=== PATIENT | female | born 1950 | race African-American/Black ===

== ENCOUNTER 2017-08-22 17:05 | Inpatient (IN) ==
[2017-08-22] MEDS ORDERED: ACETAMINOPHEN 325 MG TABLET PO PRN (18:58)
[2017-08-22] MEDS ORDERED: ONDANSETRON 4 MG/2 ML VIAL IV PRN (18:58)
[2017-08-22] MEDS ORDERED: GLUCAGON 1 MG VIAL IM PRN (18:58)
[2017-08-22] MEDS ORDERED: DEXTROSE 50% 25 GM/50 ML SYRINGE IV PRN (18:58)
[2017-08-22] MEDS ORDERED: NYSTATIN POWDER 15 GM BOTTLE TOP PRN (19:00)
[2017-08-22] MEDS ORDERED: BISACODYL 5 MG TABLET PO PRN (19:01)
[2017-08-22] MEDS ORDERED: dimenhyDRINATE 50 MG TABLET PO PRN (19:01)
[2017-08-22] MEDS ORDERED: oxyCODONE/ACETAMINOPHEN 5-325 MG TABLET PO PRN (19:01)
--- NOTE | 2017-08-22 19:05 | XRay Report ---
Exam: XR chest 1V portable Date: 08/22/2017 5:56 PM Indication: Elevated white blood cell count Comparison: None Technical: AP Findings: The heart is normal in size. Mild prominence the pulmonary arteries are present. ASVD is present. No obvious consolidating infiltrate or effusion. Bony structures are intact without acute findings. Impression: 1. No acute cardiopulmonary pathology demonstrated. PROCEDURE INTERPRETED AT [facility] DEPARTMENT OF RADIOLOGY Final Report Signed by: Dr. Kamar Hinton
--- NOTE | 2017-08-22 19:14 | Hospitalist History & Physical ---
Assessment and Plan - Time spent with patient Time spent with patient: Greater than 30 minutes (1) Dehydration Status: Acute Assessment and plan: Once IV access is gained, initiate IV fluids for rehydration. Current Visit: Yes (2) Acute kidney injury Status: Acute Assessment and plan: External facility records indicate acute kidney injury with creatinine approximately 3.1 and BUN greater than 80. Avoid nephrotoxic agents. Gentle IV fluid repletion. Consult nephrology for assistance. Current Visit: Yes (3) Hypokalemia Status: Acute Assessment and plan: External facility records indicate a potassium level of approximately 2.8. Potassium replacement per protocol. Current Visit: Yes (4) Depression Status: Acute Assessment and plan: Continue home medications Current Visit: Yes (5) History of cervical cancer Status: Acute Assessment and plan: Patient recently diagnosed with cervical cancer in May 2017. She is followed by physicians at [facility]. Status post hysterectomy. Current Visit: Yes (6) Status post complete hysterectomy Status: Acute Assessment and plan: Patient received a complete hysterectomy May 2017 secondary to cervical cancer. Current Visit: Yes (7) Status post nephrectomy Status: Acute Assessment and plan: Patient still has a left nephrostomy tube in place. She is followed by urology in [place]. Current Visit: Yes (8) Candidiasis of mouth Status: Acute Assessment and plan: Oral nystatin Current Visit: Yes (9) Yeast infection involving the vagina and surrounding area Status: Acute Assessment and plan: Nystatin powder topical twice daily and as needed. Current Visit: Yes History of Present Illness Chief complaint: dehydration, NIKKI, hypokalemia History of present illness: Ms. Colunga is a 67 year old female with past medical history significant for hypertension, congestive heart failure, cervical cancer with recent hysterectomy, and hyperlipidemia who presents as a transfer from [facility] for further evaluation of dehydration, acute renal failure and hypokalemia. On exam, the patient has a flat affect and appears to be depressed. Much of her history was given from her daughters who are at bedside. Apparently the patient was recently diagnosed with cervical cancer with subsequent hysterectomy in May 2017. Daughter states that the patient seems to have "clocked out" since receiving the diagnosis of cancer. She is not yet started chemotherapy. Patient is primarily cared for by her sister during the week and daughters on the weekend. Patient has obvious poor hygiene and his she does have evidence of oral thrush, severe yeast infections in her abdominal and vaginal folds. On exam, the patient does not voice any complaints outside of exquisite tenderness to the pubic and groin regions. She denies headache, chest pain, shortness of breath, abdominal pain, numbness or tingling. Daughter states that she has lost a significant amount of weight in the recent past. She is followed by physicians at [facility] in [place] including a urologist. Labs are currently pending. However, external facility records indicate that the patient has acute kidney injury with a creatinine greater than 3 and BUN greater than 80. Records also indicate that the patient is hypokalemic with a potassium level less than 3. Stat labs have been ordered. Her nurses are having difficulty accessing an IV. Therefore we have consulted Dr. Camp to insert a central line. This case has been discussed with Dr. Bhandari, admitting physician, and the patient will be admitted to the hospital medicine service for further evaluation and treatment. She is a full code. Home medications have been reviewed and reconciled. Home Medications Medication Instructions Recorded Confirmed Type Atorvastatin [Lipitor] 20 mg PO BEDTIME 08/22/17 08/22/17 History Bisacodyl Tab [Dulcolax Tab] 5 mg PO DAILY PRN 08/22/17 08/22/17 History Carvedilol [Coreg] 3.125 mg PO BID 08/22/17 08/22/17 History Ciprofloxacin Tab [Cipro Tab] 500 mg PO BID 08/22/17 08/22/17 History Escitalopram [Lexapro] 20 mg PO BEDTIME 08/22/17 08/22/17 History Ferrous Sulfate 325 mg PO TID 08/22/17 08/22/17 History Furosemide 40 mg PO DAILY 08/22/17 08/22/17 History Mirtazapine 7.5 mg PO BEDTIME 08/22/17 08/22/17 History Nitrofurantoin Monohyd/M-Cryst 100 mg PO BID 08/22/17 08/22/17 History [Nitrofurantoin [place]-Mcr 100 mg] Oxycodone HCl/Acetaminophen 1 - 2 tablet PO Q6H PRN 08/22/17 08/22/17 History [Oxycodone-Acetaminophen 10-325] Pantoprazole Tab [Protonix Tab] 40 mg PO DAILY 08/22/17 08/22/17 History Polyethylene Glycol Powder 17 gm PO DAILY 08/22/17 08/22/17 History [Miralax] amLODIPine [Norvasc] 2.5 mg PO DAILY 08/22/17 08/22/17 History dimenhyDRINATE TAB [Dramamine] 1 tablet PO Q4HR PRN 08/22/17 08/22/17 History Allergies Allergy/AdvReac Type Severity Reaction Status Date / Time No Known Allergies Allergy Verified 08/22/17 17:55 Medical,Surgical,& Family Hx - Medical History Cardio: History of: Hypertension Psychological: History of: Depression Endocrine: History of: Dyslipidemia Gastrointestinal: History of: GERD Hematology: History of: Anemia Other: No history of: Anesthesia Reactions, Anaphylaxis - Surgical History Thoracic Surgeries: Surgical HX of;: Nephrectomy Reproductive Surgeries: Surgical HX of;: Gynecologic Surgery, Hysterectomy - Family History Family History: Reports;: Family Cancer, Family Diabetes, Family Hypertension - Social History Smoking Status: Never smoker Frequency of Alcohol Use: None Type of Drug Use: None Marital Status: Single Lives With:: Children Functional capacity: uses cane/walker 12 point system: reviewed and no additional remarkable complaints except as stated Exam - Constitutional Vitals: Period Temp Pulse Resp BP Sys/Matthews Pulse Ox Last 24 Hr 97.2 F 116 18 106/59 93 General appearance: over weight - Head Head exam: Present: normal inspection, normocephalic, atraumatic - Eye Eye exam: Present: EOMI Pupils: Present: CHEYANNE - ENT ENT exam: Present: normal exam, normal external ear exam - Neck Neck exam: Present: normal inspection. Absent: lymphadenopathy, tenderness, thyromegaly - Respiratory Respiratory exam: Present: clear to auscultation bilaterally. Absent: rales, rhonchi, wheezes - Cardiovascular Cardiovascular exam: Present: regular rate and rhythm - GI/Abdominal GI/Abdominal exam: Present: normal bowel sounds, tenderness, soft, other ( Significant decrease in abdominal folds). Absent: distended, firm - Extremities Exam Extremities exam: Present: normal capillary refill, full ROM, edema - Neurological Exam Neurological exam: Present: alert, oriented X3, CN II-XII intact, reflexes normal - Psychiatric Psychiatric exam: Present: depressed, flat affect - Skin Skin exam: Present: abrasion, erythema, rash Results - Labs Labs: Labs are pending IV access or central line placement. - Diagnostic Findings Procedure: Chest x-ray: image reviewed by me, report reviewed by me (No acute cardiopulmonary pathology demonstrated.)
[2017-08-22 19:21] LABS: Basophils % 0.4 % (0.0-0.8); Eosinophils % 0.1 % (0.00-10.9); Hematocrit 31.8 VOL% (35.7-47.0); Hemoglobin 10.2 GM/DL (12.0-16.0); Immature Granulocytes % 1.1 %; Immature Granulocytes Absolute 0.08 #; Lymphocytes # 0.4 10*3/uL (1.4-4.0); Lymphocytes % 5.2 % (21.3-54.2); Mean Corpuscular HGB Conc 32.1 GM/DL (32-36); Mean Corpuscular Hemoglobin 27 PG (27-34); Mean Corpuscular Volume 83.9 FL (87-102); Monocytes # 0.3 10*3/uL (0.11-0.8); Monocytes % 3.4 % (1.7-12.7); NRBC # 0.08 10*3/uL; Neutrophils # 6.6 10*3/uL (1.4-7.4); Neutrophils % 89.8 % (38.7-73.9); Red Blood Count 3.79 MC/CUMM (3.8-5.5); Red Cell Distribution Width 26.1 % (9.3-17.3); White Blood Count 7.4 T/CUMM (4-12)
[2017-08-22 19:25] LABS: Platelet Count 51 T/CUMM (130-400)
--- NOTE | 2017-08-22 19:28 | Operative Note ---
Date of procedure: 08/22/17 Pre-op diagnosis: Dehydration, cervical cancer, unable to obtain IV access Post-op diagnosis: same Procedure: Indication for procedure. Patient was transferred from [facility] emergency room with diagnosis of dehydration and renal insufficiency and cervical cancer. By report 8 attempts were made at obtaining a peripheral IV at the outside emergency room and TWO attempted here upon direct admission. None were successful. Discussed central line placement with the patient's family. The risks of the procedure including bleeding, infection, damage to surrounding structures, need for further surgery were all discussed in detail and they all agree to proceed. Procedure performed. Placement of right internal jugular central venous catheter Procedure in detail: After informed consent was obtained patient was laid supine in her hospital bed in the right neck and chest were prepped and draped in usual sterile fashion. After procedural pause ultrasound was brought over through a sterile sleeve covering ultrasound the right neck revealed a patent and compressible right internal jugular vein. Local anesthetic infiltrated in skin and subcutaneous tissue. The right internal jugular vein was then accessed using an 18-gauge Seldinger needle under ultrasound guidance on the first attempt. There was return of nonpulsatile dark red blood. Guidewire inserted and advanced without resistance. Ultrasound confirmed the guidewire to be coursing through the visualized portion of the right internal jugular vein. Next a small incision was made around the guidewire. The tract was dilated using Seldinger technique. Next a quadruple lumen central venous catheter was advanced over the guidewire using Seldinger technique. The guidewire was removed. All ports withdrew and flushed easily. The catheter was secured with 2-0 silk suture. Sterile dressings applied and the patient tolerated the procedure well. Anesthesia: local Surgeon / Physician: Girma Camp Estimated blood loss: other (Less than 5 cc) Specimens: none sent Condition: stable Disposition: no change Discharge Plan - Discharge Medications No Action Pantoprazole Tab [Protonix Tab] 40 mg PO DAILY Atorvastatin [Lipitor] 20 mg PO BEDTIME Escitalopram [Lexapro] 20 mg PO BEDTIME amLODIPine [Norvasc] 2.5 mg PO DAILY Ferrous Sulfate 325 mg PO TID dimenhyDRINATE TAB [Dramamine] 1 tablet PO Q4HR PRN PRN Reason: Itching Oxycodone HCl/Acetaminophen [Oxycodone-Acetaminophen 10-325] 1 - 2 tablet PO Q6H PRN PRN Reason: Pain Nitrofurantoin Monohyd/M-Cryst [Nitrofurantoin [place]-Mcr 100 mg] 100 mg PO BID Carvedilol [Coreg] 3.125 mg PO BID Furosemide 40 mg PO DAILY Ciprofloxacin Tab [Cipro Tab] 500 mg PO BID Mirtazapine 7.5 mg PO BEDTIME Bisacodyl Tab [Dulcolax Tab] 5 mg PO DAILY PRN PRN Reason: Constipation Polyethylene Glycol Powder [Miralax] 17 gm PO DAILY - Follow Up or Referral - Forms/Instructions
--- NOTE | 2017-08-22 19:31 | XRay Report ---
Exam: XR chest 1V portable Date: 08/22/2017 7:05 PM Indication: Central line placement Comparison: 08/22/2017 6:21 PM Technical: AP Findings: A right IJ catheter has been placed this tip is in the right atrium. No pneumothorax. ASVD is present. No obvious consolidating infiltrate or effusion present. The heart is normal in size. Impression: 1. Interval placement right IJ catheter without pneumothorax. PROCEDURE INTERPRETED AT [facility] DEPARTMENT OF RADIOLOGY Final Report Signed by: Dr. Kamar Hinton
[2017-08-22 19:48] LABS: Albumin 2.4 G/DL (3.4-5.0); Bilirubin,Total 1.4 MG/DL (0.2-1.0); Calcium 9.7 MG/DL (8.5-10.1); Osmolality,Calculated 305.8 MOS/KG (273-304); Potassium 3.3 MMOL/L (3.5-5.1); Total Protein 6.9 G/DL (6.4-8.3)
[2017-08-22] MEDS: SODIUM CHLORIDE 0.9% 1,000 ML IV SCH (19:52)
[2017-08-22 19:55] LABS: Risk Ratio 12.26; Thyroid Stimulating Hormone 4.28 uIU/ml (0.358-3.74)
[2017-08-22] MEDS: FERROUS SULFATE 325 MG TABLET PO SCH (20:55)
[2017-08-22] MEDS: CIPROFLOXACIN 500 MG TABLET PO SCH (20:55)
[2017-08-22] MEDS: ESCITALOPRAM 10 MG TABLET PO SCH (20:55)
[2017-08-22] MEDS: ATORVASTATIN 20 MG TABLET PO SCH (20:55)
[2017-08-22] MEDS: CARVEDILOL 3.125 MG TABLET PO SCH (20:55)
[2017-08-22] MEDS: MIRTAZAPINE 15 MG TABLET PO SCH (20:56)
[2017-08-22] MEDS: NYSTATIN POWDER 15 GM BOTTLE TOP SCH (20:57)
[2017-08-22] MEDS ORDERED: NITROFURANTOIN MACRO/MONO 100 MG CAPSULE PO SCH (21:00)
[2017-08-22 21:07] LABS: Apearance,Urine CLOUDY (Clear); Bacteria,Urine Many /HPF (Few); Blood, Urine Moderate mg/dL (Negative); Glucose,Urine (UA) Negative (Negative); Ketones,Urine 5 mg/dL (Negative); Mucus,Urine Many /LPF (Occasional); Nitrite,Urine Negative (Negative); Protein,Urine >=500 MG/DL; RBC,Urine 302 /HPF (0-4); Urine Color Yellow (Yellow); Urine Specific Gravity 1.011 (1.001-1.035); Urine Urobilinogen < 2.0 EU/DL (0.2-1.0); WBC,Urine 264 /HPF (0-6)
[2017-08-22 21:08] LABS: Bilirubin,Urine Small mg/dL (Negative)
[2017-08-22] MEDS: INSULIN LISPRO 100 UNIT/ML SUBCUT SCH (22:17)
[2017-08-22] MEDS: POTASSIUM CHLORIDE RIDER 20 MEQ in PREMIX 1 EACH IV PRN (22:17)
[2017-08-23] MEDS: POTASSIUM CHLORIDE RIDER 20 MEQ in PREMIX 1 EACH IV PRN (00:25)
[2017-08-23] MEDS: SODIUM CHLORIDE 0.9% 1,000 ML IV SCH ×3 (02:55→20:46)
[2017-08-23 07:30] LABS: Basophils % 0.3 % (0.0-0.8); Eosinophils # 0.1 10*3/uL (0.0-0.87); Eosinophils % 0.9 % (0.00-10.9); Hematocrit 28.4 VOL% (35.7-47.0); Hemoglobin 9.4 GM/DL (12.0-16.0); Immature Granulocytes % 0.7 %; Immature Granulocytes Absolute 0.05 #; Lymphocytes # 0.5 10*3/uL (1.4-4.0); Lymphocytes % 7.3 % (21.3-54.2); Mean Corpuscular HGB Conc 33.1 GM/DL (32-36); Mean Corpuscular Hemoglobin 28 PG (27-34); Monocytes # 0.3 10*3/uL (0.11-0.8); Monocytes % 3.7 % (1.7-12.7); NRBC # 0.09 10*3/uL; Neutrophils # 5.8 10*3/uL (1.4-7.4); Neutrophils % 87.1 % (38.7-73.9); Red Blood Count 3.42 MC/CUMM (3.8-5.5); Red Cell Distribution Width 26.5 % (9.3-17.3); White Blood Count 6.7 T/CUMM (4-12)
[2017-08-23 07:31] LABS: Platelet Count 45 T/CUMM (130-400)
[2017-08-23 07:54] LABS: Calcium 9.4 MG/DL (8.5-10.1); Osmolality,Calculated 309.3 MOS/KG (273-304); Potassium 3.2 MMOL/L (3.5-5.1)
[2017-08-23 08:05] LABS: Band Neutrophils 9 % (0-10); Hypochromasia 1+; Lymphocytes 2 % (20-55); Metamyelocytes 1 %; Segmented Neutrophils 87 % (50-85); Total Cells Counted 100
[2017-08-23 08:06] LABS: Anisocytosis 1+; Microcytosis 1+; Ovalocytes Slight
[2017-08-23 08:07] LABS: Platelet Estimate Decreased
[2017-08-23] MEDS ORDERED: FUROSEMIDE 40 MG TABLET PO SCH (09:00)
--- NOTE | 2017-08-23 09:01 | Hospitalist Progress Note ---
Assessment and Plan (1) Acute kidney injury Status: Acute Assessment and plan: Noted improvement in renal function. BUN and creatinine noted at 88/2.70 down from 90/3.30. We will continue gentle hydration and avoid all nephrotoxic agents. We will monitor intake and output closely. Current Visit: Yes (2) Dehydration Status: Acute Assessment and plan: We will continue hydration as previously ordered. Monitor intake and output closely. Continue supportive measures. Current Visit: Yes Hospitalist: Subjective Interval history: Patient seen and examined; chart reviewed. No significant overnight events reported. Noted improvement in renal status; BUN/Creatinine noted at 88/2.70 from 90/3.30 on yesterday. Exam - Constitutional Vitals: Period Temp Pulse Resp BP Sys/Matthews Pulse Ox Last 24 Hr 97.2 F-97.9 F 72-116 16-18 106-154/47-76 93-99 General appearance: no acute distress, under weight - Head Head exam: Present: normal inspection, normocephalic, atraumatic - Eye Eye exam: Present: EOMI Pupils: Present: CHEYANNE, normal accommodation - ENT ENT exam: Present: normal exam, normal external ear exam, normal oropharynx - Neck Neck exam: Present: normal inspection. Absent: lymphadenopathy, meningismus, tenderness, thyromegaly - Respiratory Respiratory exam: Present: clear to auscultation bilaterally. Absent: rales, rhonchi, stridor, wheezes - Cardiovascular Cardiovascular exam: Present: regular rate and rhythm. Absent: carotid bruit, diastolic murmur, gallop, JVD, rubs, systolic murmur - GI/Abdominal GI/Abdominal exam: Present: normal bowel sounds, soft - Extremities Exam Extremities exam: Present: normal inspection, normal capillary refill, full ROM. Absent: edema - Back Exam Back exam: Present: normal inspection - Neurological Exam Neurological exam: Present: alert, oriented X3 - Psychiatric Psychiatric exam: Present: flat affect - Skin Skin exam: Present: normal color, warm, dry Results - Labs CBC & BMP: 08/23/17 05:20 08/23/17 05:20 Lab Results: I have reviewed the past 24 hour labs
[2017-08-23] MEDS: PANTOPRAZOLE 40 MG TABLET PO SCH (09:21)
[2017-08-23] MEDS: CIPROFLOXACIN 500 MG TABLET PO SCH (09:21)
[2017-08-23] MEDS: POLYETHYLENE GLYCOL POWDER 17 GM PACK PO SCH (09:22)
[2017-08-23] MEDS: amLODIPine 2.5 MG TABLET PO SCH (09:22)
[2017-08-23] MEDS: CARVEDILOL 3.125 MG TABLET PO SCH ×2 (09:22→20:46)
[2017-08-23] MEDS: FERROUS SULFATE 325 MG TABLET PO SCH ×3 (09:22→20:46)
[2017-08-23] MEDS: INSULIN LISPRO 100 UNIT/ML SUBCUT SCH ×4 (09:23→20:47)
[2017-08-23] MEDS: NYSTATIN POWDER 15 GM BOTTLE TOP SCH (09:23)
[2017-08-23] MEDS: NYSTATIN 500,000 UNIT/5 ML UDCUP SWISH/SWAL SCH ×3 (12:52→20:47)
[2017-08-23] MEDS: CLOTRIMAZOLE/BETAMETHASONE CREAM 15 GM TUBE TOP SCH ×2 (12:52→20:55)
--- NOTE | 2017-08-23 13:10 | Ultrasound Report ---
Renal ultrasound Indication: Elevated creatinine Comparison: None available Findings: Kidneys are normal in size and echogenicity except for a simple appearing cyst on the left kidney that measures 7 mm in size. Bilateral internal ureteral stents are present. There is suggestion of mild left hydronephrosis. The right renal length is 8.3 cm. The left renal length is 10.4 cm. No free fluid or other abnormality is seen. Impression: Simple appearing left renal cyst. Bilateral internal ureteral stents. Possible mild left hydronephrosis. No other abnormality seen. Ultrasound images stored and captured. PROCEDURE INTERPRETED AT [facility] DEPARTMENT OF RADIOLOGY Final Report Signed by: Dr. Dom Evans
[2017-08-23] MEDS ORDERED: LEVOFLOXACIN INJ 500 MG in PREMIX 1 EACH IV SCH (16:00)
[2017-08-23] MEDS ORDERED: VANCOMYCIN INJ 1,250 MG in SODIUM CHLORIDE 0.9% 250 ML IV SCH (17:00)
[2017-08-23] MEDS: MIRTAZAPINE 15 MG TABLET PO SCH (20:45)
[2017-08-23] MEDS: ESCITALOPRAM 10 MG TABLET PO SCH (20:46)
[2017-08-23] MEDS: ATORVASTATIN 20 MG TABLET PO SCH (20:46)
[2017-08-23] MEDS: POTASSIUM CHLORIDE RIDER 10 MEQ in PREMIX 1 EACH IV PRN (23:10)
[2017-08-24] MEDS: POTASSIUM CHLORIDE RIDER 10 MEQ in PREMIX 1 EACH IV PRN ×3 (00:21→03:29)
[2017-08-24 07:43] LABS: Basophils % 0.2 % (0.0-0.8); Eosinophils # 0.1 10*3/uL (0.0-0.87); Hemoglobin 8.7 GM/DL (12.0-16.0); Immature Granulocytes Absolute 0.05 #; Lymphocytes # 0.2 10*3/uL (1.4-4.0); Lymphocytes % 4.8 % (21.3-54.2); Mean Corpuscular HGB Conc 31.1 GM/DL (32-36); Mean Corpuscular Hemoglobin 27 PG (27-34); Mean Corpuscular Volume 85.9 FL (87-102); Monocytes # 0.2 10*3/uL (0.11-0.8); NRBC # 0.04 10*3/uL; Neutrophils # 4.5 10*3/uL (1.4-7.4); Red Blood Count 3.26 MC/CUMM (3.8-5.5)
[2017-08-24 07:57] LABS: Platelet Count 26 T/CUMM (130-400)
[2017-08-24 08:09] LABS: Calcium 8.8 MG/DL (8.5-10.1); Potassium 3.3 MMOL/L (3.5-5.1)
[2017-08-24 08:15] LABS: Albumin 1.9 G/DL (3.4-5.0); Calcium 8.9 MG/DL (8.5-10.1); Magnesium 2.2 MG/DL (1.8-2.4); Phosphorous 1.2 MG/DL (2.5-4.9); Potassium 3.3 MMOL/L (3.5-5.1); Total Protein 5.4 G/DL (6.4-8.3)
[2017-08-24 08:17] LABS: Band Neutrophils 4 % (0-10); Eosinophils 2 % (0-10); Hypochromasia 1+; Lymphocytes 1 % (20-55); Microcytosis 1+; Platelet Estimate Decreased; Segmented Neutrophils 91 % (50-85); Total Cells Counted 100
[2017-08-24] MEDS: INSULIN LISPRO 100 UNIT/ML SUBCUT SCH ×4 (08:50→20:12)
--- NOTE | 2017-08-24 08:51 | Physician Query Form ---
CLICK EDIT DOCUMENT TO SELECT QUERY ANSWER --> OK --> SIGN Xenia Shields RN Clinical Bed Operator W) [phone] (f) [phone] [email or web address] PROVIDERS: Make your selection(s) from the choices in EACH section by typing an "x" and enter comments in the comment section. Please use your independent medical judgment in providing your response. This request does not imply that any particular answer is desired or expected. CLINICAL INDICATORS: (Providers should not edit this section) Based on lab results of urinalysis showed large amount of leukocytes. Pt. treated with IV Levaquin and Vancomycin. Based on the above, could you clarify the appropriate diagnosis, if significant , that supports the above abnormalities and additional evaluation, monitoring, and/or treatment rendered: (X ) Pt. treated for UTI ( ) Pt. not treated for UTI ( ) Other, please specify: ( ) Clinically unable to determine COMMENTS: PLEASE ALSO DOCUMENT RESPONSE IN PROGRESS NOTES AND/OR DISCHARGE SUMMARY Use of terms such as suspected, likely, or probable (associated with a specific diagnosis that is being evaluated, monitored, or treated as if it exists) are acceptable and can be restated in the discharge summary if not ruled out. [facility]
[2017-08-24] MEDS ORDERED: SODIUM CHLORIDE 0.9% 250 ML IV PRN (09:05)
--- NOTE | 2017-08-24 09:05 | Hospitalist Progress Note ---
<Marcy Clarke - Last Filed: 08/24/17 09:03> Assessment and Plan (1) Acute kidney injury Status: Acute Assessment and plan: Noted improvement in renal function. BUN and creatinine noted at 88/2.70 down from 90/3.30. We will continue gentle hydration and avoid all nephrotoxic agents. We will monitor intake and output closely. 10-BUN and creatinine noted at 75/2.00 down from 88/2.70 yesterday. We will continue gentle hydration and avoid all nephrotoxic agents. We will recheck labs in a.m. Current Visit: Yes (2) Dehydration Status: Acute Assessment and plan: We will continue hydration as previously ordered. Monitor intake and output closely. Continue supportive measures. Current Visit: Yes (3) Thrombocytopenia, primary Status: Acute Assessment and plan: Noted decrease in platelet count; platelet count noted at 25 today down from 45 on yesterday. Upon examination, the patient was noted to be experiencing mild hematuria. We will transfuse 1 pack of platelets today and recheck platelet count in a.m. No additional overt signs of bleeding noted. Current Visit: Yes (4) Hypokalemia Status: Acute Assessment and plan: Potassium noted at 3.3 today. Electrolyte replacement has been ordered. We will correct the deficit and recheck in a.m. Current Visit: Yes Hospitalist: Subjective Interval history: Patient seen and examined; chart reviewed. No significant overnight events reported per staff. Hematuria noted in Tang catheter. Exam - Constitutional Vitals: Period Temp Pulse Resp BP Sys/Matthews Pulse Ox Last 24 Hr 96.7 F-97.6 F 62-70 18-18 100-112/48-68 86-100 General appearance: normal weight, no acute distress - Head Head exam: Present: normal inspection, normocephalic, atraumatic - Eye Eye exam: Present: EOMI Pupils: Present: CHEYANNE, normal accommodation - ENT ENT exam: Present: normal exam, normal external ear exam, normal oropharynx - Neck Neck exam: Present: normal inspection. Absent: lymphadenopathy, meningismus, tenderness, thyromegaly - Respiratory Respiratory exam: Present: clear to auscultation bilaterally. Absent: rales, rhonchi, stridor, wheezes - Cardiovascular Cardiovascular exam: Present: bradycardia, regular rate and rhythm. Absent: carotid bruit, diastolic murmur, gallop, JVD, rubs, systolic murmur - GI/Abdominal GI/Abdominal exam: Present: normal bowel sounds, soft - Extremities Exam Extremities exam: Present: edema (+3 pitting edema noted to bilateral lower extremities) - Back Exam Back exam: Present: normal inspection - Neurological Exam Neurological exam: Present: alert, oriented X3, CN II-XII intact - Psychiatric Psychiatric exam: Present: flat affect - Skin Skin exam: Present: normal color, warm, dry Results - Labs CBC & BMP: 08/24/17 05:46 08/24/17 05:46 Lab Results: I have reviewed the past 24 hour labs <Neeraj Hutton - Last Filed: 08/26/17 07:35> Hospitalist: Subjective Interval history: I have seen and examined the patient. Agree with assessment and plans as outlined above by nurse practitioner Marcy Clarke. Exam - Constitutional Vitals: Period Temp Pulse Resp BP Sys/Matthews Pulse Ox Last 24 Hr 96.3 F-98.1 F 61-73 16-20 100-140/46-75 97-100 Results - Labs CBC & BMP: 08/26/17 05:51 08/26/17 05:51
[2017-08-24] MEDS: SODIUM CHLORIDE 0.9% 1,000 ML IV SCH ×4 (09:22→18:08)
[2017-08-24] MEDS: CARVEDILOL 3.125 MG TABLET PO SCH ×2 (09:42→21:06)
[2017-08-24] MEDS: FERROUS SULFATE 325 MG TABLET PO SCH ×3 (09:43→21:06)
[2017-08-24] MEDS: POLYETHYLENE GLYCOL POWDER 17 GM PACK PO SCH (09:44)
[2017-08-24] MEDS: NYSTATIN 500,000 UNIT/5 ML UDCUP SWISH/SWAL SCH ×4 (09:44→21:07)
[2017-08-24] MEDS: PANTOPRAZOLE 40 MG TABLET PO SCH ×2 (09:45→10:03)
[2017-08-24] MEDS: amLODIPine 2.5 MG TABLET PO SCH (09:45)
[2017-08-24] MEDS: POTASSIUM CHLORIDE RIDER 20 MEQ in PREMIX 1 EACH IV PRN ×2 (09:55→11:45)
[2017-08-24] MEDS: CLOTRIMAZOLE/BETAMETHASONE CREAM 15 GM TUBE TOP SCH ×2 (10:01→21:07)
[2017-08-24] MEDS ORDERED: POTASSIUM PHOSPHATE 15 MMOL in SODIUM CHLORIDE 0.9% 100 ML IV ONE (11:00)
[2017-08-24] MEDS: HYDROmorphone 2 MG/1 ML VIAL IV PRN (11:44)
[2017-08-24] MEDS: LEVOFLOXACIN INJ 250 MG in PREMIX 1 EACH IV SCH (16:39)
[2017-08-24] MEDS: MIRTAZAPINE 15 MG TABLET PO SCH (21:06)
[2017-08-24] MEDS: ESCITALOPRAM 10 MG TABLET PO SCH (21:06)
[2017-08-24] MEDS: ATORVASTATIN 20 MG TABLET PO SCH (21:07)
[2017-08-25] MEDS: SODIUM CHLORIDE 0.9% 1,000 ML IV SCH ×2 (03:24→11:16)
[2017-08-25 06:52] LABS: Calcium 8.5 MG/DL (8.5-10.1); Osmolality,Calculated 311.4 MOS/KG (273-304); Potassium 3.7 MMOL/L (3.5-5.1)
[2017-08-25 06:57] LABS: Albumin 1.9 G/DL (3.4-5.0); Bilirubin,Total 0.9 MG/DL (0.2-1.0); Calcium 8.4 MG/DL (8.5-10.1); Magnesium 2.2 MG/DL (1.8-2.4); Osmolality,Calculated 309.6 MOS/KG (273-304); Phosphorous 1.4 MG/DL (2.5-4.9); Potassium 3.7 MMOL/L (3.5-5.1); Total Protein 5.4 G/DL (6.4-8.3)
[2017-08-25] MEDS: PANTOPRAZOLE 40 MG TABLET PO SCH (08:52)
[2017-08-25] MEDS: POLYETHYLENE GLYCOL POWDER 17 GM PACK PO SCH (08:52)
[2017-08-25] MEDS: amLODIPine 2.5 MG TABLET PO SCH (08:52)
[2017-08-25] MEDS: HYDROmorphone 2 MG/1 ML VIAL IV PRN (08:53)
[2017-08-25] MEDS: INSULIN LISPRO 100 UNIT/ML SUBCUT SCH ×4 (08:53→20:56)
[2017-08-25] MEDS: NYSTATIN 500,000 UNIT/5 ML UDCUP SWISH/SWAL SCH ×4 (08:53→20:12)
[2017-08-25] MEDS: FERROUS SULFATE 325 MG TABLET PO SCH ×3 (08:53→20:13)
[2017-08-25] MEDS: CARVEDILOL 3.125 MG TABLET PO SCH ×2 (08:53→20:13)
[2017-08-25] MEDS: CLOTRIMAZOLE/BETAMETHASONE CREAM 15 GM TUBE TOP SCH ×2 (08:54→20:59)
[2017-08-25 10:12] LABS: Basophils % 0.2 % (0.0-0.8); Eosinophils # 0.1 10*3/uL (0.0-0.87); Eosinophils % 2.4 % (0.00-10.9); Hematocrit 24.7 VOL% (35.7-47.0); Hemoglobin 7.9 GM/DL (12.0-16.0); Immature Granulocytes % 0.5 %; Immature Granulocytes Absolute 0.02 #; Lymphocytes # 0.2 10*3/uL (1.4-4.0); Lymphocytes % 5.1 % (21.3-54.2); Mean Corpuscular Hemoglobin 28 PG (27-34); Mean Corpuscular Volume 87.3 FL (87-102); Mean Platelet Volume 11.6 FL (9.6-12.0); Monocytes # 0.2 10*3/uL (0.11-0.8); Monocytes % 3.9 % (1.7-12.7); NRBC # 0.03 10*3/uL; Neutrophils # 3.6 10*3/uL (1.4-7.4); Neutrophils % 87.9 % (38.7-73.9); Red Blood Count 2.83 MC/CUMM (3.8-5.5); Red Cell Distribution Width 27.3 % (9.3-17.3); White Blood Count 4.1 T/CUMM (4-12)
[2017-08-25 10:13] LABS: Platelet Count 56 T/CUMM (130-400)
[2017-08-25 10:38] LABS: Band Neutrophils 3 % (0-10); Hypochromasia 1+; Lymphocytes 1 % (20-55); Microcytosis 1+; Nucleated Red Blood Cells 1 (0-5); Segmented Neutrophils 94 % (50-85); Total Cells Counted 100
[2017-08-25 10:39] LABS: Platelet Estimate Decreased
[2017-08-25] MEDS ORDERED: DEXTROSE 50% 25 GM/50 ML VIAL IV PRN (11:00)
[2017-08-25] MEDS: SODIUM CHLORIDE 0.45% 1,000 ML IV SCH (11:27)
[2017-08-25] MEDS: VANCOMYCIN INJ 1,250 MG in SODIUM CHLORIDE 0.9% 250 ML IV SCH (11:27)
[2017-08-25] MEDS: LEVOFLOXACIN INJ 250 MG in PREMIX 1 EACH IV SCH (16:02)
[2017-08-25] MEDS: MIRTAZAPINE 15 MG TABLET PO SCH (20:13)
[2017-08-25] MEDS: ATORVASTATIN 20 MG TABLET PO SCH (20:13)
[2017-08-25] MEDS: ESCITALOPRAM 10 MG TABLET PO SCH (20:13)
[2017-08-26] MEDS: SODIUM CHLORIDE 0.45% 1,000 ML IV SCH (01:05)
[2017-08-26 06:40] LABS: Basophils % 0.3 % (0.0-0.8); Eosinophils # 0.1 10*3/uL (0.0-0.87); Eosinophils % 1.3 % (0.00-10.9); Hematocrit 24.4 VOL% (35.7-47.0); Hemoglobin 7.7 GM/DL (12.0-16.0); Immature Granulocytes % 1.3 %; Immature Granulocytes Absolute 0.05 #; Lymphocytes # 0.4 10*3/uL (1.4-4.0); Lymphocytes % 9.5 % (21.3-54.2); Mean Corpuscular HGB Conc 31.6 GM/DL (32-36); Mean Corpuscular Hemoglobin 27 PG (27-34); Mean Corpuscular Volume 86.8 FL (87-102); Monocytes # 0.1 10*3/uL (0.11-0.8); Monocytes % 3.6 % (1.7-12.7); NRBC # 0.04 10*3/uL; Neutrophils # 3.3 10*3/uL (1.4-7.4); Red Blood Count 2.81 MC/CUMM (3.8-5.5); Red Cell Distribution Width 27.9 % (9.3-17.3); White Blood Count 3.9 T/CUMM (4-12)
[2017-08-26 06:52] LABS: Platelet Count 37 T/CUMM (130-400)
[2017-08-26 06:53] LABS: Albumin 1.8 G/DL (3.4-5.0); Bilirubin,Total 0.8 MG/DL (0.2-1.0); Calcium 8.3 MG/DL (8.5-10.1); Magnesium 1.9 MG/DL (1.8-2.4); Osmolality,Calculated 305.6 MOS/KG (273-304); Phosphorous 1.6 MG/DL (2.5-4.9); Potassium 3.8 MMOL/L (3.5-5.1); Total Protein 5.2 G/DL (6.4-8.3)
[2017-08-26 07:09] LABS: Band Neutrophils 1 % (0-10); Eosinophils 2 % (0-10); Lymphocytes 1 % (20-55); Segmented Neutrophils 95 % (50-85); Total Cells Counted 100
[2017-08-26 07:10] LABS: Giant Platelets Few; Hypochromasia 1+; Microcytosis Slight; Ovalocytes Slight; Platelet Estimate Decreased
[2017-08-26] MEDS: PANTOPRAZOLE 40 MG TABLET PO SCH ×2 (08:17→08:26)
[2017-08-26] MEDS: FERROUS SULFATE 325 MG TABLET PO SCH ×4 (08:18→20:54)
[2017-08-26] MEDS: CARVEDILOL 3.125 MG TABLET PO SCH ×3 (08:18→20:54)
[2017-08-26] MEDS: amLODIPine 2.5 MG TABLET PO SCH ×2 (08:18→08:26)
[2017-08-26] MEDS: CLOTRIMAZOLE/BETAMETHASONE CREAM 15 GM TUBE TOP SCH (08:18)
[2017-08-26] MEDS: NYSTATIN 500,000 UNIT/5 ML UDCUP SWISH/SWAL SCH ×4 (08:18→20:54)
[2017-08-26] MEDS: POLYETHYLENE GLYCOL POWDER 17 GM PACK PO SCH (08:23)
[2017-08-26] MEDS: INSULIN LISPRO 100 UNIT/ML SUBCUT SCH ×4 (09:28→20:54)
[2017-08-26] MEDS ORDERED: SODIUM CHLORIDE 0.9% 250 ML IV PRN (10:05)
--- NOTE | 2017-08-26 10:14 | Hospitalist Progress Note ---
<Rebecca Clarkeda - Last Filed: 08/26/17 10:10> Assessment and Plan (1) Acute kidney injury Status: Acute Assessment and plan: Noted improvement in renal function. BUN and creatinine noted at 88/2.70 down from 90/3.30. We will continue gentle hydration and avoid all nephrotoxic agents. We will monitor intake and output closely. 10/3-BUN and creatinine noted at 75/2.00 down from 88/2.70 yesterday. We will continue gentle hydration and avoid all nephrotoxic agents. We will recheck labs in a.m. 10/4-BUN/Creatinine noted at 51/1.40. This is a modest decrease from 75/2.00 on yesterday. We will continue gentle hydration as previously ordered and avoid all nephrotoxic agents. Current Visit: Yes (2) Dehydration Status: Acute Assessment and plan: We will continue hydration as previously ordered. Monitor intake and output closely. Continue supportive measures. Current Visit: Yes (3) Thrombocytopenia, primary Status: Acute Assessment and plan: Noted decrease in platelet count; platelet count noted at 25 today down from 45 on yesterday. Upon examination, the patient was noted to be experiencing mild hematuria. We will transfuse 1 pack of platelets today and recheck platelet count in a.m. No additional overt signs of bleeding noted. 10/4-platelet count noted at 56 up from 26 on yesterday. The patient was transfused 1 pack of platelets. No obvious signs of bleeding noted. We will monitor platelet count and transfuse as indicated. 10/5 platelet count noted at 37 down from 56 on yesterday. Patient was transfused 1 pack of platelets on Wednesday. The patient's thrombocytopenia is chronic in nature. We will continue to monitor closely. In addition, we will consult hematology/oncology to evaluate and assist. Current Visit: Yes (4) Hypokalemia Status: Acute Assessment and plan: Potassium noted at 3.3 today. Electrolyte replacement has been ordered. We will correct the deficit and recheck in a.m. Current Visit: Yes (5) Poor nutrition Status: Acute Assessment and plan: The patient's p.o. intake has been less than favorable. The patient was assessed by speech therapy and recommendations for a pured diet was given. The patient has been noted to consume less than 50% of all of her meals since the changing of her diet. This is an area of great concern. The patient's albumin is noted at 1.8 and total protein at 5.2. All of both indications of failure to meet nutritional requirements. We will order NG tube placement and dietary consultation for tube feeding recommendations. Current Visit: Yes (6) Poor prognosis Status: Acute Assessment and plan: The patient's prognosis is certainly poor. The patient has extensive nutritional deficits and electrolyte deficiencies. In addition, the patient has profound anemia and thrombocytopenia. I have requested medical records from [facility] in [place], [place] for review. Upon review of the medical record, the patient had a recent diagnosis of cervical cancer in May of this year. Staging of her cancer and proposed treatment options is unknown. I have attempted to contact the patient's family regarding her current status and prognosis however, I was unable to reach anyone. I have instructed the nursing staff to contact me personally if any family arrived at the bedside. Current Visit: Yes Hospitalist: Subjective Interval history: Patient seen and examined; chart reviewed. No significant overnight events reported per staff. Hemoglobin and hematocrit noted at 7.7/24.4 today. I will attempt to contact the patient's family regarding the patient's status. Exam - Constitutional Vitals: Period Temp Pulse Resp BP Sys/Matthews Pulse Ox Last 24 Hr 96.3 F-98.1 F 61-72 16-20 91-140/46-75 95-100 General appearance: no acute distress - Head Head exam: Present: normal inspection, normocephalic, atraumatic - Eye Eye exam: Present: EOMI. Absent: conjunctival injection Pupils: Present: CHEYANNE, normal accommodation - ENT ENT exam: Present: normal exam, normal external ear exam, normal oropharynx - Neck Neck exam: Present: normal inspection. Absent: lymphadenopathy, meningismus, tenderness, thyromegaly - Respiratory Respiratory exam: Present: clear to auscultation bilaterally. Absent: rales, rhonchi, stridor, wheezes - Cardiovascular Cardiovascular exam: Present: regular rate and rhythm. Absent: carotid bruit, diastolic murmur, gallop, JVD, rubs, systolic murmur - GI/Abdominal GI/Abdominal exam: Present: normal bowel sounds, soft - Extremities Exam Extremities exam: Present: edema (4 edema noted to bilateral lower extremities) - Back Exam Back exam: Present: normal inspection - Neurological Exam Neurological exam: Present: alert, altered, CN II-XII intact - Psychiatric Psychiatric exam: Present: flat affect - Skin Skin exam: Present: normal color, warm, dry Results - Labs CBC & BMP: 08/26/17 05:51 08/26/17 05:51 Lab Results: I have reviewed the past 24 hour labs <Neeraj Hutton - Last Filed: 08/26/17 14:52> Hospitalist: Subjective Interval history: I have seen and examined the patient. I have reviewed the chart. I agree with the assessment and plans of nurse practitioner Marcy Clarke. Exam - Constitutional Vitals: Period Temp Pulse Resp BP Sys/Matthews Pulse Ox Last 24 Hr 96.6 F-98.1 F 61-76 16-20 91-140/46-69 95-100 Results - Labs CBC & BMP: 08/26/17 05:51 08/26/17 05:51
[2017-08-26] MEDS: DEXTROSE 5% 1,000 ML IV SCH (10:49)
[2017-08-26] MEDS: VANCOMYCIN INJ 1,250 MG in SODIUM CHLORIDE 0.9% 250 ML IV SCH (10:49)
[2017-08-26] MEDS: POTASSIUM CHLORIDE RIDER 20 MEQ in PREMIX 1 EACH IV PRN (11:18)
--- NOTE | 2017-08-26 11:59 | CT Report ---
CT brain Indication: Altered mental status Comparison: None available Technique: Axial CT imaging of the brain is performed without contrast with 3 mm increments. Findings: No evidence of hemorrhage, mass mass effect midline shift or acute infarct seen. There is mild diffuse cerebral atrophy. There are areas of decreased density seen within the white white matter, likely related to chronic microvascular change. There is slight decreased density in the left basal ganglia. Otherwise the brain parenchyma attenuation and differentiation appears within normal limits. The ventricles and cisterns are normal in caliber. No cranial or skull base abnormality is identified. Impression: Slight decreased the left basal ganglia density, could indicate subacute lacunar infarct. No other acute findings. This CT exam was performed using one or more the following dose reduction techniques: Automated exposure control, adjustment of the MA and/or KV according to patient size, or use of iterative reconstruction technique. PROCEDURE INTERPRETED AT [facility] DEPARTMENT OF RADIOLOGY Final Report Signed by: Dr. Dom Evans
[2017-08-26 12:03] LABS: Calcium 8.2 MG/DL (8.5-10.1); Magnesium 1.8 MG/DL (1.8-2.4); Osmolality,Calculated 300.8 MOS/KG (273-304); Phosphorous 1.8 MG/DL (2.5-4.9); Potassium 3.8 MMOL/L (3.5-5.1)
[2017-08-26] MEDS: FLUCONAZOLE INJ 200 MG in PREMIX 1 EACH IV SCH (12:55)
--- NOTE | 2017-08-26 13:34 | Physician Query Form ---
CLICK EDIT DOCUMENT TO SELECT QUERY ANSWER --> OK --> SIGN Xenia Shields RN Clinical Agronomy Supervisor W) [phone] (f) [phone] [email or web address] PROVIDERS: Make your selection(s) from the choices in EACH section by typing an "x" and enter comments in the comment section. Please use your independent medical judgment in providing your response. This request does not imply that any particular answer is desired or expected. CLINICAL INDICATORS: (Providers should not edit this section) Based on documentation of "acute Thrombocytopenia. Patient was transfused 1 pack of platelets". WBC=3.9, RBC=2.81, PLT=37. Based on the above, could you clarify the appropriate diagnosis, if significant , that supports the above abnormalities and additional evaluation, monitoring, and/or treatment rendered: ( X) Pt. has pancytopenia ( ) Pt. does not have pancytopenia ( ) Other, please specify: ( ) Clinically unable to determine COMMENTS: PLEASE ALSO DOCUMENT RESPONSE IN PROGRESS NOTES AND/OR DISCHARGE SUMMARY Use of terms such as suspected, likely, or probable (associated with a specific diagnosis that is being evaluated, monitored, or treated as if it exists) are acceptable and can be restated in the discharge summary if not ruled out. MTDD
--- NOTE | 2017-08-26 13:53 | XRay Report ---
XR chest 1V portable Indication: NG tube placement Comparison: One August 2017 Findings: Exam is centered over the lower chest and upper abdomen. NG tube is present with tip overlying the left upper quadrant. Impression: NG tube appears in appropriate x-ray position. PROCEDURE INTERPRETED AT [facility] DEPARTMENT OF RADIOLOGY Final Report Signed by: Dr. Dom Evans
--- NOTE | 2017-08-26 14:33 | CT Report ---
Exam: CT abdomen and pelvis without intravenous contrast Clinical History: 67 years,Female, cervical cancer, staging abdominal pain, generalized Technique: Axial computed tomography images of the abdomen and pelvis without intravenous contrast. All CT scans at this facility use one or more dose reduction techniques. Automated exposure control, MA/KV adjustment per patient size (including targeted exam Square dose is matched to indication) or iterative reconstruction technique Comparison: No relevant comparisons Findings: Lower thorax: No acute pathology within the lung bases. Abdomen: Liver: Focal area of hypodensity with irregular margins crossing the falciform ligament, likely fatty replacement. Atypical hemangioma and/or cysts cannot be excluded. Gallbladder and bile ducts: Isoattenuating gallbladder, may represent biliary sludge. Pancreas: Pancreas is normal. Spleen: Spleen is normal. Adrenals: Mild nodularity suggesting hyperplasia. Kidneys and ureters: Bilateral ureteral stents in satisfactory position. Small amount of air along the ureteral catheters in within the urinary bladder, likely secondary to placement. Left percutaneous access nephrostomy tube in satisfactory position. Minimal residual right hydronephrosis. Stomach and bowel: Scattered colonic diverticula. Lower quadrant ostomy Appendix: Not clearly demonstrated.. Pelvis: Bladder: Unremarkable Reproductive: There is a poorly defined mass filling the pelvis measuring 16.0 x 13.0 x 15.0 cm with marked nodularity and small satellite mesenteric mass lesions within the lower abdomen, limited in evaluation secondary to lack of intravenous contrast to delineate soft tissues. Findings likely ovarian in origin. Abdomen and pelvis: Intraperitoneal space: Multiple mesenteric and peritoneal mass lesions involving the lower abdomen and upper pelvis Bones/joints: No acute osseous abnormality. Soft tissues: No mass Vasculature: No aortic aneurysm. Atheromatous calcifications noted along the aorta and branch vessels. Lymph nodes: No adenopathy Impression: 1. Satisfactory positioning of the bilateral ureteral stents with minimal residual right hydronephrosis 2. Satisfactory positioning of the percutaneous left nephrostomy tube 3. Large poorly defined mass, felt to be uterine in nature filling the pelvis resulting in mass effect on the bladder and adjacent bowel loops measuring up to 16.0 cm 4. Multiple smaller scattered mesenteric soft tissue masses within the lower abdomen and upper pelvis consistent with local metastasis 5. Focal area of hypoattenuation crossing the falciform ligament, likely focal fat. Could not exclude underlying metastasis. Further characterization with postcontrast imaging is suggested PROCEDURE INTERPRETED AT [facility] DEPARTMENT OF RADIOLOGY Final Report Signed by: Olayinka Pyle MD
[2017-08-26] MEDS: NYSTATIN POWDER 15 GM BOTTLE TOP SCH ×2 (14:50→20:55)
[2017-08-26] MEDS: LEVOFLOXACIN INJ 250 MG in PREMIX 1 EACH IV SCH (15:05)
--- NOTE | 2017-08-26 15:47 | Urology Consultation ---
Assessment and Plan - Time spent with patient Time spent with patient: Less than 30 minutes (1) Uterine cancer, sarcoma Status: Acute Assessment and plan: I spoke with Dr. Irineo Dudley (urologist at [facility]). He provided a good history. 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 Stents were placed by interventional radiology, as he is able to place retrograde stents due to large mass-effect. Current Visit: Yes (2) Hydronephrosis, bilateral Status: Acute Assessment and plan: Bilateral ureteral stents in good position with the left PCN. Right stent has been in since May and left stent was recently changed in July. Follow-up with her urologist as scheduled in 1 month if not on hospice. Current Visit: Yes (3) Acute kidney injury Status: Acute Assessment and plan: Creatinine 1.40 with Tang catheter draining well. Unfortunately, this lady is severely ill and likely going to continue worsening due to her unresectable disease. I tried to speak with her daughter as well as the patient, but I am not sure they really understand. I have told them that they need to consider hospice. Her daughter states she is going to speak with the primary attending to get a clear understanding later this afternoon. From urologic standpoint, she has good drainage of her urinary tract. Unfortunately, she is unlikely to improve, and this will likely worsen. She can follow-up with her urologist in a month, or I am happy to assist. However I think the best option is going to be hospice care. Thanks for the opportunity to participate in her care. Please call with any questions or concerns. Current Visit: Yes History of Present Illness - Data of Consult Patient: new to practice Consult date: 08/26/17 - Consult Narrative History of present illness: Ms. Colunga is a 67 year old female status post incomplete resection of a uterine sarcoma. She underwent exploration and hysterectomy. She had a large uterine sarcoma that was filling the pelvis. This was done at [facility] in [place], [place]. She was noted to have severe hydronephrosis, and the a local urologist Dr. Irineo Guy was consulted. He was unable to place retrograde stents. This was due to large mass effect. She had antegrade stents placed by interventional radiology. She had a double-J stent placed on the right side. She had worsening hydronephrosis in the left side was change with a nephroureteral stent placed in July. She was told this was unresectable, and was still attempting to have some type of treatment with possible radiation. She was seen by Dr. Guy within the last couple weeks. She has a scheduled follow-up in 1 month. She was admitted here on August 22, and she is noted to have enterococcus UTI. She had another CT today that demonstrates significant obstruction with this large pelvic mass. I spoke with her daughter via telephone. She reports she is unsure exactly was going home. I spoke with Dr. Guy, and he reports that when he saw her and she seemed to have a lack of full understanding despite counseling. This is gradual onset, but worsened. She has severe hydronephrosis, but this is now drained with stents and a Tang catheter. CC: Neeraj uHtton hydronephrosis - Home Medications and Allergies Home Medications: Home Medications Medication Instructions Recorded Confirmed Type Atorvastatin [Lipitor] 20 mg PO BEDTIME 08/22/17 08/22/17 History Bisacodyl Tab [Dulcolax Tab] 5 mg PO DAILY PRN 08/22/17 08/22/17 History Carvedilol [Coreg] 3.125 mg PO BID 08/22/17 08/22/17 History Ciprofloxacin Tab [Cipro Tab] 500 mg PO BID 08/22/17 08/22/17 History Escitalopram [Lexapro] 20 mg PO BEDTIME 08/22/17 08/22/17 History Ferrous Sulfate 325 mg PO TID 08/22/17 08/22/17 History Furosemide 40 mg PO DAILY 08/22/17 08/22/17 History Mirtazapine 7.5 mg PO BEDTIME 08/22/17 08/22/17 History Nitrofurantoin Monohyd/M-Cryst 100 mg PO BID 08/22/17 08/22/17 History [Nitrofurantoin [place]-Mcr 100 mg] Oxycodone HCl/Acetaminophen 1 - 2 tablet PO Q6H PRN 08/22/17 08/22/17 History [Oxycodone-Acetaminophen 10-325] Pantoprazole Tab [Protonix Tab] 40 mg PO DAILY 08/22/17 08/22/17 History Polyethylene Glycol Powder 17 gm PO DAILY 08/22/17 08/22/17 History [Miralax] amLODIPine [Norvasc] 2.5 mg PO DAILY 08/22/17 08/22/17 History dimenhyDRINATE TAB [Dramamine] 1 tablet PO Q4HR PRN 08/22/17 08/22/17 History Allergies/Adverse Reactions: Allergies Allergy/AdvReac Type Severity Reaction Status Date / Time No Known Allergies Allergy Verified 08/22/17 17:55 Medical,Surgical,& Family Hx - Medical History Cardio: History of: Hypertension Psychological: History of: Depression Endocrine: History of: Dyslipidemia Gastrointestinal: History of: GERD Hematology: History of: Anemia Other: No history of: Anesthesia Reactions, Anaphylaxis - Surgical History Thoracic Surgeries: Surgical HX of;: Nephrectomy Reproductive Surgeries: Surgical HX of;: Gynecologic Surgery, Hysterectomy - Family History Family History: Reports;: Family Cancer, Family Diabetes, Family Hypertension - Social History Smoking Status: Never smoker Frequency of Alcohol Use: None Type of Drug Use: None ROS unobtainable: due to mental status Exam - Constitutional Vitals: Period Temp Pulse Resp BP Sys/Matthews Pulse Ox Last 24 Hr 96.6 F-98.2 F 61-76 16-20 91-120/46-73 95-99 General appearance: mild distress - Head Head exam: Present: normocephalic - ENT ENT exam: Present: normal oropharynx - Respiratory Respiratory exam: Present: decreased breath sounds. Absent: stridor - Cardiovascular Cardiovascular exam: Present: tachycardia. Absent: JVD - GI/Abdominal GI/Abdominal exam: Present: soft, other (Open abdominal wound). Absent: rebound - Genitourinary Genitourinary: external genitalia normal, other (Tang catheter with cloudy urine draining) - Extremities Exam Extremities exam: Absent: calf tenderness - Back Exam Back exam: Present: other (Left PCN capped). Absent: CVA tenderness (L), CVA tenderness (R) - Neurological Exam Neurological exam: Present: alert, other (Oriented to person but will answer any questions) - Psychiatric Psychiatric exam: Present: flat affect - Skin Skin exam: Present: warm, dry Results - Labs CBC & BMP: 08/26/17 05:51 08/26/17 05:51 Lab Results: I have reviewed the past 24 hour labs - Diagnostic Findings Procedure: CT Abdomen and Pelvis: image reviewed by me (CT without contrast demonstrates bilateral ureteral stents in good position with left nephrostomy tube.), Ultrasound: image reviewed by me
--- NOTE | 2017-08-26 16:00 | Oncology Consult Note ---
History of Present Illness Chief complaint: Endometrial sarcoma History of present illness: Ms. Colunga is a 67 year old female who was diagnosed as having uterine sarcoma earlier this year. She underwent surgery as outlined below. The tumor could not be completely resected and she has a persistent pelvic mass with ureteral obstruction requiring stenting. Placing of the stents was very difficult. Interventional radiology became involved. She is admitted now with severe debilitation and probably with end stage disease. She is receiving blood. She has an NG tube in place. She was seen by Dr. Storey. He and I discussed her case and I am now of the opinion that she probably needs to be considered for hospice. I am told that some of the family members have a great deal of denial. History of unresectable uterine sarcoma Status: Acute Assessment and plan: She was recently diagnosed with uterine sarcoma in May 2017. She is followed by physicians at [facility]. Status post hysterectomy. She has still not healed completely from surgery. Status post complete hysterectomy The patient underwent a complete hysterectomy May 2017 secondary to sarcoma of the uterus. However, the tumor was unresectable. Medical,Surgical,& Family Hx - Medical History Cardio: History of: Hypertension Psychological: History of: Depression Endocrine: History of: Dyslipidemia Gastrointestinal: History of: GERD Hematology: History of: Anemia Other: No history of: Anesthesia Reactions, Anaphylaxis - Surgical History Thoracic Surgeries: Surgical HX of;: Nephrectomy Reproductive Surgeries: Surgical HX of;: Gynecologic Surgery, Hysterectomy - Family History Family History: Reports;: Family Cancer, Family Diabetes, Family Hypertension - Social History Smoking Status: Never smoker Frequency of Alcohol Use: None Type of Drug Use: None Marital Status: Single Lives With:: Children Functional capacity: uses cane/walker ROS She is too weak and debilitated presently to obtain a review of systems. Physical examination: General: The patient is chronically ill. She is poorly responsive. She has an NG tube in place and is receiving blood. Eyes: Normal lids and conjunctivae. ENT: Her oral mucosa is moist. Her pharynx appears normal. Her hearing appears normal. Neck: Her trachea is midline and she has no neck masses. Lungs: Breath sounds are relatively normal throughout without rubs, rales or rhonchi. There is symmetrical chest motion with respiration. Cardiovascular: Her heart rhythm is regular without murmur, gallop or rub. There is no jugular venous distention, clubbing or cyanosis. Abdomen: She is surprisingly nontender. She has had surgery and a portion of the wound is still not healed below the umbilicus. It continues to drain. Musculoskeletal: She is severely weak. There is no focal muscle atrophy or bone or joint deformity. Neurologic: Cranial nerves II through XII are intact. I cannot tell about any focal neurologic deficits but she has no obvious deficit. She is just severely weak and it makes it difficult to test. Nodes: I palpate no submandibular, cervical or supraclavicular adenopathy. Lab work on this admission includes a white cell count of 3900. Her hemoglobin is 7.7 and her platelet count is 37,000. Her comprehensive metabolic profile includes a serum creatinine of 1.4 with a urea nitrogen of 52. She has a low serum albumin of 1.8 with a correspondingly low serum calcium of 8.2. This patient apparently has advanced sarcoma and I have very little to offer her. She would probably be best served going on hospice. Her immediate family is not available. I will return tomorrow and discuss this with them. Thank you for consulting me. This is advanced uterine sarcoma, apparently, and the best we would have to offer is palliative chemotherapy. I will be discussing this with her family. Home Medications Medication Instructions Recorded Confirmed Type Atorvastatin [Lipitor] 20 mg PO BEDTIME 08/22/17 08/22/17 History Bisacodyl Tab [Dulcolax Tab] 5 mg PO DAILY PRN 08/22/17 08/22/17 History Carvedilol [Coreg] 3.125 mg PO BID 08/22/17 08/22/17 History Ciprofloxacin Tab [Cipro Tab] 500 mg PO BID 08/22/17 08/22/17 History Escitalopram [Lexapro] 20 mg PO BEDTIME 08/22/17 08/22/17 History Ferrous Sulfate 325 mg PO TID 08/22/17 08/22/17 History Furosemide 40 mg PO DAILY 08/22/17 08/22/17 History Mirtazapine 7.5 mg PO BEDTIME 08/22/17 08/22/17 History Nitrofurantoin Monohyd/M-Cryst 100 mg PO BID 08/22/17 08/22/17 History [Nitrofurantoin Moca-Mcr 100 mg] Oxycodone HCl/Acetaminophen 1 - 2 tablet PO Q6H PRN 08/22/17 08/22/17 History [Oxycodone-Acetaminophen 10-325] Pantoprazole Tab [Protonix Tab] 40 mg PO DAILY 08/22/17 08/22/17 History Polyethylene Glycol Powder 17 gm PO DAILY 08/22/17 08/22/17 History [Miralax] amLODIPine [Norvasc] 2.5 mg PO DAILY 08/22/17 08/22/17 History dimenhyDRINATE TAB [Dramamine] 1 tablet PO Q4HR PRN 08/22/17 08/22/17 History Allergies Allergy/AdvReac Type Severity Reaction Status Date / Time No Known Allergies Allergy Verified 08/22/17 17:55 Medical,Surgical,& Family Hx - Medical History Cardio: History of: Hypertension Psychological: History of: Depression Endocrine: History of: Dyslipidemia Gastrointestinal: History of: GERD Hematology: History of: Anemia Other: No history of: Anesthesia Reactions, Anaphylaxis - Surgical History Thoracic Surgeries: Surgical HX of;: Nephrectomy Reproductive Surgeries: Surgical HX of;: Gynecologic Surgery, Hysterectomy - Family History Family History: Reports;: Family Cancer, Family Diabetes, Family Hypertension - Social History Smoking Status: Never smoker Frequency of Alcohol Use: None Type of Drug Use: None Exam - Constitutional Vitals: Period Temp Pulse Resp BP Sys/Matthews Pulse Ox Last 24 Hr 96.6 F-98.2 F 61-76 16-20 91-120/46-73 95-99 Results - Labs CBC & BMP: 08/26/17 05:51 08/26/17 05:51
[2017-08-26] MEDS: MIRTAZAPINE 15 MG TABLET PO SCH (20:54)
[2017-08-26] MEDS: ESCITALOPRAM 10 MG TABLET PO SCH (20:54)
[2017-08-26] MEDS: ATORVASTATIN 20 MG TABLET PO SCH (20:54)
[2017-08-26 21:01] LABS: Hematocrit 34.5 VOL% (35.7-47.0); Hemoglobin 11.2 GM/DL (12.0-16.0)
[2017-08-27 03:39] LABS: Basophils % 0.2 % (0.0-0.8); Eosinophils % 0.9 % (0.00-10.9); Hematocrit 32.7 VOL% (35.7-47.0); Hemoglobin 10.7 GM/DL (12.0-16.0); Immature Granulocytes % 1.3 %; Immature Granulocytes Absolute 0.06 #; Lymphocytes # 0.4 10*3/uL (1.4-4.0); Lymphocytes % 8.5 % (21.3-54.2); Mean Corpuscular HGB Conc 32.7 GM/DL (32-36); Mean Corpuscular Hemoglobin 28 PG (27-34); Mean Corpuscular Volume 86.3 FL (87-102); Monocytes # 0.2 10*3/uL (0.11-0.8); Monocytes % 3.7 % (1.7-12.7); Neutrophils # 3.9 10*3/uL (1.4-7.4); Neutrophils % 85.4 % (38.7-73.9); Red Blood Count 3.79 MC/CUMM (3.8-5.5); Red Cell Distribution Width 23.9 % (9.3-17.3); White Blood Count 4.6 T/CUMM (4-12)
[2017-08-27 03:55] LABS: Platelet Count 29 T/CUMM (130-400)
[2017-08-27 04:23] LABS: Albumin 1.9 G/DL (3.4-5.0); Bilirubin,Total 0.6 MG/DL (0.2-1.0); Calcium 8.3 MG/DL (8.5-10.1); Phosphorous 1.2 MG/DL (2.5-4.9); Total Protein 5.6 G/DL (6.4-8.3)
[2017-08-27 04:24] LABS: Magnesium 1.8 MG/DL (1.8-2.4); Osmolality,Calculated 303.8 MOS/KG (273-304)
[2017-08-27 04:56] LABS: Band Neutrophils 1 % (0-10); Hypochromasia 1+; Lymphocytes 9 % (20-55); Microcytosis Slight; Ovalocytes Slight; Platelet Estimate Decreased; Segmented Neutrophils 87 % (50-85); Total Cells Counted 100
[2017-08-27] MEDS: INSULIN LISPRO 100 UNIT/ML SUBCUT SCH ×2 (08:28→12:43)
[2017-08-27] MEDS: DEXTROSE 5% 1,000 ML IV SCH (08:28)
[2017-08-27] MEDS: amLODIPine 2.5 MG TABLET PO SCH (08:29)
[2017-08-27] MEDS: FERROUS SULFATE 325 MG TABLET PO SCH ×2 (08:29→15:20)
[2017-08-27] MEDS: NYSTATIN POWDER 15 GM BOTTLE TOP SCH ×2 (08:29→15:20)
[2017-08-27] MEDS: NYSTATIN 500,000 UNIT/5 ML UDCUP SWISH/SWAL SCH ×2 (08:29→12:48)
[2017-08-27] MEDS: CARVEDILOL 3.125 MG TABLET PO SCH (08:29)
[2017-08-27] MEDS: PANTOPRAZOLE 40 MG TABLET PO SCH (08:29)
[2017-08-27] MEDS: POLYETHYLENE GLYCOL POWDER 17 GM PACK PO SCH (09:04)
[2017-08-27 09:14] VITALS: BP 121/64
[2017-08-27] MEDS: FLUCONAZOLE INJ 200 MG in PREMIX 1 EACH IV SCH (09:43)
[2017-08-27] MEDS: VANCOMYCIN INJ 1,250 MG in SODIUM CHLORIDE 0.9% 250 ML IV SCH ×2 (09:43→10:59)
--- NOTE | 2017-08-27 11:10 | Discharge Summary ---
Hospital Course - Hospital Course Hospital Course: This is a chronically ill 64-year-old female that presented to [facility] on August 22, 2017 as a direct admit/transfer from [facility] in [place], [place]. Patient has a medical history significant for hypertension, dyslipidemia, gastroesophageal reflux disease, congestive heart failure, cervical cancer, hydronephrosis, anemia, depression, and chronic constipation. The patient has a surgical history significant for left nephrectomy, and radical hysterectomy. Apparently, the patient was experiencing a general decline in status in recent weeks. The patient was recently diagnosed in May 2017 with cervical cancer and underwent a subsequent hysterectomy at that time at [facility] in [facility]. The family reports that the patient is currently awaiting treatment recommendations. The family noted that the patient has gradually become weaker and less responsive since her subsequent diagnosis. The patient' s condition continued to decline prompting the family to transport her to the ED at [facility] for further evaluation. The patient was assessed at the time of ED presentation there at [facility]. A full diagnostic workup was performed which was significant for acute kidney injury, hypokalemia , and gross dehydration. The patient was subsequently transferred to [facility] for the further evaluation of these findings. The patient was admitted to the hospitalist service. The patient was assessed at the time of direct admission. Labs were obtained which were significant for hemoglobin 10.2, hematocrit 31.8, platelet count 51, potassium 3.3, chloride 97, anion gap 16.3, BUN 90, creatinine 3.30, glucose 187 , calculated osmolality 305.8, lactic acid 3.6, total bilirubin 1.40, albumin 2.4, triglycerides 485, cholesterol 282, HDL cholesterol 23, free T4 0.62. Urinalysis was essentially remarkable for urine pH 9.0, urine blood moderate, urine bilirubin small, urine urobilinogen greater than 2.0, urine leukocytes large, urine RBCs 302, urine WBCs 264, urine WBC clumps many, urine bacteria many and urine mucus many. Empiric antibiotic coverage, gentle rehydration, and DVT prophylaxis were initiated. Renal ultrasound was obtained on August was significant for simple appearing left renal cyst, bilateral internal ureteral stents, possible mild left hydronephrosis. Supportive care was continued however, the patient's condition failed to improve. The patient's renal function failed to improve. Due to the existence of a left nephrostomy tube, a urology consultation was requested and recommendations were given. An oncology consultation was requested due to the uncertainty of the patient's cervical cancer and to discuss possible treatment options. The patient was evaluated and recommendations were given. Upon oncology evaluation, it was determined that the patient's prognosis was essentially poor. The patient's prognosis was discussed with the family. Upon family discussion, the patient was made a DO NOT RESUSCITATE. In addition, the family requested discharge on hospice and selected [facility]. The patient's condition is stable however, her prognosis is very poor. Today, we feel that she is indeed appropriate for discharge home to the hospice services provided by [facility] and Hospice services. I have seen and examined the patient on the day of discharge. I agree with the discharge summary as dictated by nurse practitioner Marcy Clarke. - Time spent with patient Time with patient DS: Greater than 30 minutes Diagnosis - Discharge Diagnosis (1) Acute kidney injury Status: Acute (2) Dehydration Status: Acute (3) Thrombocytopenia, primary Status: Acute (4) Hypokalemia Status: Acute (5) Poor nutrition Status: Acute (6) Poor prognosis Status: Acute Specialty Discharge - Follow Up or Referrals - Speciality Discharge Instructions Hospitalist Instructions: The patient will be discharged to the services of [facility] and Hospice Service. Discharge Plan - Discharge Data Disposition: Hospice - Home Condition at Discharge: Undetermined Discharge Diet: advance to your usual diet Hygiene: other - Discharge Medications New Morphine Liquid 10 mg PO Q4H PRN #100 ml PRN Reason: Pain Promethazine Supp [Phenergan Supp] 25 mg RECTAL Q4H #30 supp Discontinued Pantoprazole Tab [Protonix Tab] 40 mg PO DAILY Atorvastatin [Lipitor] 20 mg PO BEDTIME Escitalopram [Lexapro] 20 mg PO BEDTIME amLODIPine [Norvasc] 2.5 mg PO DAILY Ferrous Sulfate 325 mg PO TID dimenhyDRINATE TAB [Dramamine] 1 tablet PO Q4HR PRN PRN Reason: Itching Oxycodone HCl/Acetaminophen [Oxycodone-Acetaminophen 10-325] 1 - 2 tablet PO Q6H PRN PRN Reason: Pain Nitrofurantoin Monohyd/M-Cryst [Nitrofurantoin [place]-Mcr 100 mg] 100 mg PO BID Carvedilol [Coreg] 3.125 mg PO BID Furosemide 40 mg PO DAILY Ciprofloxacin Tab [Cipro Tab] 500 mg PO BID Mirtazapine 7.5 mg PO BEDTIME Bisacodyl Tab [Dulcolax Tab] 5 mg PO DAILY PRN PRN Reason: Constipation Polyethylene Glycol Powder [Miralax] 17 gm PO DAILY - Follow Up or Referral - Forms/Instructions Instructions: Dehydration (DC), How to Use and Care for Your PEG Tube (DC), Thrombocytopenia (DC) Exam - Constitutional Vitals: Period Temp Pulse Resp BP Sys/Matthews Pulse Ox Last 24 Hr 97.4 F-98.2 F 65-87 16-20 98-146/56-77 90-100 General appearance: normal weight, mild distress - Head Head exam: Present: normal inspection, normocephalic - Eye Eye exam: Present: EOMI. Absent: conjunctival injection Pupils: Present: [place], normal accommodation - ENT ENT exam: Present: normal exam, normal external ear exam, normal oropharynx - Neck Neck exam: Present: normal inspection. Absent: lymphadenopathy, meningismus, tenderness, thyromegaly - Respiratory Respiratory exam: Present: clear to auscultation bilaterally. Absent: rales, rhonchi, stridor, other - Cardiovascular Cardiovascular exam: Present: bradycardia, regular rate and rhythm. Absent: carotid bruit, diastolic murmur, gallop, JVD, rubs, systolic murmur - GI/Abdominal GI/Abdominal exam: Present: normal bowel sounds, soft - Extremities Exam Extremities exam: Present: normal inspection, edema (+4 pitting edema noted to bilateral lower extremity) - Back Exam Back exam: Present: normal inspection - Neurological Exam Neurological exam: Present: alert, altered - Psychiatric Psychiatric exam: Present: flat affect - Skin Skin exam: Present: other (Multiple compared areas noted to perineum, groin, and coccyx.) Discharge Results Procedures and tests throughout hospitalization: Pending Orders 08/22/17 Urine Culture Routine 08/22/17 18:35 Blood Culture Stat 08/24/17 19:46 Wound Culture Routine 08/30/17 04:00 Basic Metabolic Panel MOTH Magnesium MOTH Phosphorous MOTH Prealbumin MOTH 09/02/17 04:00 Basic Metabolic Panel MOTH Magnesium MOTH Phosphorous MOTH Prealbumin MOTH Labs on day of discharge: Labs from last 24 hours 08/27/17 08/27/17 08/26/17 02:48 02:48 20:40 WBC 4.6 RBC 3.79 L D Hgb 10.7 L 11.2 L D Hct 32.7 L 34.5 L MCV 86.3 L MCH 28 MCHC 32.7 RDW 23.9 H Plt Count 29 L* D Neut % (Auto) 85.4 H Lymph % (Auto) 8.5 L [place] % (Auto) 3.7 Eos % (Auto) 0.9 Baso % (Auto) 0.2 Neut # (Auto) 3.9 Lymph # (Auto) 0.4 L [place] # (Auto) 0.2 Eos # (Auto) 0.0 Baso # (Auto) 0.0 Total Counted 100 Immature Gran % 1.3 Nucleated RBC % 2.2 Immature Gran # 0.06 Segmented Neutrophils 87 H Band Neutrophils 1 Lymphocytes 9 L Monocytes 3 Nucleated RBCs # 0.10 Platelet Estimate Decreased Immature Plt Fraction 6.5 Hypochromasia 1+ Microcytosis Slight Ovalocytes Slight Morphology Comment Sodium 144 Potassium 4.0 Chloride 113 H Carbon Dioxide 21 Anion Gap 14.0 BUN 48 H Creatinine 1.50 H GFR Calculation 48 BUN/Creatinine Ratio 32.00 H Glucose 189 H POC Glucose Calculated Osmolality 303.8 Calcium 8.3 L Phosphorus 1.2 L Magnesium 1.8 Total Bilirubin 0.60 AST 29 ALT 36 Alkaline Phosphatase 77 Total Protein 5.6 L Albumin 1.9 L Globulin 3.7 H Albumin/Globulin Ratio 0.5 L Blood Type Antibody Screen Crossmatch Blood Bank Comment 08/26/17 08/26/17 08/26/17 19:55 15:39 12:47 WBC RBC Hgb Hct MCV MCH MCHC RDW Plt Count Neut % (Auto) Lymph % (Auto) [place] % (Auto) Eos % (Auto) Baso % (Auto) Neut # (Auto) Lymph # (Auto) [place] # (Auto) Eos # (Auto) Baso # (Auto) Total Counted Immature Gran % Nucleated RBC % Immature Gran # Segmented Neutrophils Band Neutrophils Lymphocytes Monocytes Nucleated RBCs # Platelet Estimate Immature Plt Fraction Hypochromasia Microcytosis Ovalocytes Morphology Comment Sodium Potassium Chloride Carbon Dioxide Anion Gap BUN Creatinine GFR Calculation BUN/Creatinine Ratio Glucose POC Glucose 244 H 150 H 250 H Calculated Osmolality Calcium Phosphorus Magnesium Total Bilirubin AST ALT Alkaline Phosphatase Total Protein Albumin Globulin Albumin/Globulin Ratio Blood Type Antibody Screen Crossmatch Blood Bank Comment 08/26/17 10:05 WBC RBC Hgb Hct MCV MCH MCHC RDW Plt Count Neut % (Auto) Lymph % (Auto) [place] % (Auto) Eos % (Auto) Baso % (Auto) Neut # (Auto) Lymph # (Auto) [place] # (Auto) Eos # (Auto) Baso # (Auto) Total Counted Immature Gran % Nucleated RBC % Immature Gran # Segmented Neutrophils Band Neutrophils Lymphocytes Monocytes Nucleated RBCs # Platelet Estimate Immature Plt Fraction Hypochromasia Microcytosis Ovalocytes Morphology Comment Sodium Potassium Chloride Carbon Dioxide Anion Gap BUN Creatinine GFR Calculation BUN/Creatinine Ratio Glucose POC Glucose Calculated Osmolality Calcium Phosphorus Magnesium Total Bilirubin AST ALT Alkaline Phosphatase Total Protein Albumin Globulin Albumin/Globulin Ratio Blood Type Cancelled Antibody Screen Cancelled Crossmatch See Detail Blood Bank Comment Cancelled Preliminary micro results at discharge 08/22/17 Unknown Urine Culture - Preliminary Urine,Voided Enterococcus faecium VIR 08/25/17 00:00 Wound Culture - Preliminary Back Gram Positive Cocci Gram Positive Cocci#2 Gram Positive Cocci#3 08/22/17 18:35 Blood Culture - Preliminary Blood No growth at 3 days 08/22/17 18:35 Blood Culture - Preliminary Blood No growth at 3 days DS: Provider Date of admission: 08/22/17 19:21 Primary care physician: . No PCP Attending physician on admission: Srinivas Garcia MD Consults: 08/22/17 18:07 Consult to Dietitian [CONS] Routine Reason for Dietitian: Dietary Consult 08/22/17 18:31 Consult to Physician [CONS] Routine Comment: Need Central Line Consulting Provider: Girma Camp Person Notified: Dr Camp Date Notified: 08/22/17 Time Notified: 18:32 08/23/17 10:01 Consult to Wound Care - [place] [CONS] Routine Reason for Wound Care: Wound Care Management Consult Comment: open abdominal wound, look at other skin surfaces 08/24/17 09:01 Consult to Case Mgmt/Social Srvs [CONS] Routine Reason for Case Mgmt/Social Srvs: Rehab Other Consult to Occupational Therapy [CONS] Routine Reason for Occupational Therapy: Evaluate and Treat PT [Consult to Physical Therapy] [CONS] Routine Reason for Physical Therapy: Evaluate and Treat 08/26/17 07:10 Consult to Dietitian [CONS] Routine Reason for Dietitian: Dietary Consult TF-Initiate/Manage 08/26/17 10:08 Consult to Physician [CONS] Routine Comment: Consulting Provider: Rodney Ponce When should Consulting Provider be notified: Now Person Notified: MEHRDAD Date Notified: 08/26/17 Time Notified: 10:30 Consult to Physician [CONS] Routine Comment: Consulting Provider: Jd Storey When should Consulting Provider be notified: Now Person Notified: LUANNE Date Notified: 08/26/17 Time Notified: 10:24 08/27/17 10:21 Consult to Case Mgmt/Social Srvs [CONS] Routine Reason for Case Mgmt/Social Srvs: Hospice Referral Discharging clinician: Marcy Clarke FUNERAL LOCATION MANAGER
[2017-08-27] MEDS ORDERED: MORPHINE 10 MG/5 ML UDCUP PO PRN (11:15)
--- NOTE | 2017-08-27 11:59 | Oncology Progress Note ---
Oncology Subjective PN Interval history: I have met with Ms. Colunga's immediate family and I have explained the situation to them. They actually had already made the decision to go with hospice and I understand she is going to be discharged to hospice later today. I will not schedule follow-up but I will be available if needed. Thank you. Exam - Constitutional Vitals: Period Temp Pulse Resp BP Sys/Matthews Pulse Ox Last 24 Hr 97.4 F-98.2 F 65-87 16-20 98-146/56-77 90-100 Results - Labs CBC & BMP: 08/27/17 02:48 08/27/17 02:48 Specialty Discharge - Follow Up or Referrals
[2017-08-27] MEDS: LEVOFLOXACIN INJ 250 MG in PREMIX 1 EACH IV SCH (15:20)
== END 2017-08-27 16:30 | disposition hospice, home (50) | DRG 683 ==
LOC: N.5E 17:05 → SUATTDRO 19:21
PROVIDERS: ADMIT Internal Medicine Infectious Disease